=== PATIENT | female | born 1980 | race Caucasian/White ===

== ENCOUNTER 2017-11-30 23:00 | Emergency (ER) | payer BC, OTHER ==
[2017-11-30 23:08] VITALS: BP 132/83
[2017-11-30] MEDS ORDERED: Sodium Chloride 0.9% 10 ML Syringe FLUSH PRN (23:32)
[2017-11-30] MEDS ORDERED: Sodium Chloride 0.9% 1,000 ML IV ONE (23:33)
[2017-11-30] MEDS ORDERED: Butorphanol 2 MG/ML SDV IVPUSH ONE (23:34)
[2017-12-01 00:19] LABS: CHLORIDE,CL 105 mmol/L (101-111); SODIUM,NA 138 mmol/L (135-145)
--- NOTE | 2017-12-01 00:33 | EDM.PDOC ---
ED HPI GENERAL MEDICAL PROBLEM - General Chief Complaint: Headache Stated Complaint: HEADACHE AND HAND TREMOR [id number] Time Seen by Provider: 11/30/17 23:15 Source of Information: Reports: Patient, Family, RN, RN Notes Reviewed History Limitations: Reports: No Limitations - History of Present Illness INITIAL COMMENTS - FREE TEXT/NARRATIVE: Pt presents to the ER with c/o headache and hand tremors. Pt states that she began having a headache last night. 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 She states she developed tremors to the hands, which is still present in the right had upon arrival. Patient states she has been taking Tylenol and it has not been relieving the pain. Pt denies visual disturbance or nausea. Onset: Sudden Onset Date: 11/29/17 Headache Pain Score (Numeric/FACES): 7 - Related Data Allergies Allergy/AdvReac Type Severity Reaction Status Date / Time hydromorphone HCl Allergy Cannot Verified 11/30/17 23:15 [From Dilaudid] Remember Sulfa (Sulfonamide Allergy Chest Verified 11/30/17 23:15 Antibiotics) Presssure cinnamon Allergy Difficulty Uncoded 08/04/16 12:17 Breathing Home Meds: Home Meds Cholecalciferol (Vitamin D3) [Vitamin D] 5,000 unit PO DAILY 08/04/16 [History] Pantoprazole Sodium [Protonix] 40 mg PO DAILY 11/30/17 [History] Past Medical History Other Gastrointestinal History: 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 Other Musculoskeletal History: 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 - Past Surgical History HEENT Surgical History: Reports: Myringotomy w Tube(s), Tonsillectomy Dermatological Surgical History: Reports: Other (See Below) Social & Family History - Family History Family Medical History: Noncontributory - Tobacco Use Smoking Status *Q: Current Every Day Smoker Years of Tobacco use: 10 Packs/Tins Daily: 0.5 Used Tobacco, but Quit: No Second Hand Smoke Exposure: Yes - Caffeine Use Caffeine Use: Reports: Coffee - Alcohol Use Days Per Week of Alcohol Use: 0 - Recreational Drug Use Recreational Drug Use: No - Living Situation & Occupation Occupation: Employed ED ROS GENERAL - Review of Systems Review Of Systems: ROS reveals no pertinent complaints other than HPI. - Physical Exam Exam: See Below Exam Limited By: No Limitations General Appearance: Alert, WD/WN, Moderate Distress Eye Exam: Bilateral Eye: EOMI, Normal Inspection Ears: Normal External Exam, Hearing Grossly Normal Nose: Normal Inspection Throat/Mouth: Normal Inspection, Normal Voice, No Airway Compromise Head Exam: Atraumatic, Normocephalic Neck: Normal Inspection, Supple, Non-Tender, Full Range of Motion Respiratory/Chest: No Respiratory Distress, Lungs Clear, Normal Breath Sounds, No Accessory Muscle Use, Chest Non-Tender Cardiovascular: Normal Peripheral Pulses, Regular Rate, Rhythm, No Edema, No Gallop, No JVD, No Murmur, No Rub GI/Abdominal: Normal Bowel Sounds, Soft, Non-Tender, No Organomegaly, No Distention, No Abnormal Bruit, No Mass (Female) Exam: Deferred Rectal (Female) Exam: Deferred Neuro Exam (Abbreviated): Alert, Oriented, Normal Cognition, Other (noticeable tremor to the right hand) Back Exam: Normal Inspection, Full Range of Motion, NT Extremities: Limited Range of Motion (right) Psychiatric: Normal Affect, Normal Mood Skin Exam: Warm, Dry, Intact, Normal Color, No Rash Course - Vital Signs Last Recorded V/S: Last Vital Signs Temp 98.3 F 11/30/17 23:07 Pulse 77 11/30/17 23:07 Resp 18 11/30/17 23:07 BP 132/83 11/30/17 23:07 Pulse Ox 100 11/30/17 23:07 - Orders/Labs/Meds Orders: Active Orders 24 hr Category Date Time Status Peripheral IV Care [RC] . DIRECTED Care 11/30/17 23:33 Active DRUG SCREEN URINE BIORAD [URCHEM] Stat Lab 11/30/17 23:32 Ordered HCG QUALITATIVE,URINE [URCHEM] Stat Lab 11/30/17 23:32 Ordered UA W/MICROSCOPIC [URIN] Stat Lab 11/30/17 23:32 Ordered Peripheral IV Insertion Adult [OM.PC] Stat Oth 11/30/17 23:32 Ordered Labs: Laboratory Tests 11/30/17 11/30/17 Range/Units 23:55 23:55 WBC 18.0 H (5.0-10.0) 10^3/uL RBC 4.62 (4.2-5.4) 10^6/uL Hgb 13.1 (12.0-16.0) g/dL Hct 39.5 (37.0-47.0) % MCV 85.5 (80-100) fL MCH 28.4 (27.0-34.0) pg MCHC 33.2 (33.0-35.0) g/dL Plt Count 262 (150-450) 10^3/uL Neut % (Auto) 69.1 (42.2-75.2) % Lymph % (Auto) 19.3 L (20.5-50.1) % Victoria % (Auto) 6.6 (2-8) % Eos % (Auto) 4.7 H (1.0-3.0) % Baso % (Auto) 0.3 (0.0-1.0) % Sodium 138 (135-145) mmol/L Potassium 3.7 (3.6-5.0) mmol/L Chloride 105 (101-111) mmol/L Carbon Dioxide 26.0 (21.0-31.0) mmol/L Anion Gap 10.7 BUN 16 (7-18) mg/dL Creatinine 1.0 (0.6-1.3) mg/dL Est Cr Clr Drug Dosing 71.41 mL/min Estimated GFR (MDRD) > 60 BUN/Creatinine Ratio 16.00 Glucose 88 (74-105) mg/dL Calcium 9.2 (8.4-10.2) mg/dl Total Bilirubin 0.5 (0.2-1.0) mg/dL AST 18 (10-42) IU/L ALT 13 (10-60) IU/L Alkaline Phosphatase 45 (42-121) IU/L Total Protein 7.2 (6.7-8.2) g/dl Albumin 4.0 (3.2-5.5) g/dl Globulin 3.2 Albumin/Globulin Ratio 1.25 Meds: Medications Discontinued Medications Generic Name Dose Route Start Last Admin Trade Name Freq PRN Reason Stop Dose Admin Butorphanol Tartrate 2 mg 11/30/17 23:34 11/30/17 23:55 Stadol IVPUSH 11/30/17 23:35 2 mg ONETIME ONE Administration Sodium Chloride 1,000 mls @ 999 mls/hr 11/30/17 23:33 11/30/17 23:52 Normal Saline IV 12/01/17 00:33 999 mls/hr .BOLUS ONE Administration Ketorolac Tromethamine 30 mg 12/01/17 00:37 12/01/17 00:50 Toradol IVPUSH 12/01/17 00:38 30 mg ONETIME ONE Administration Ondansetron HCl 4 mg 12/01/17 00:37 12/01/17 00:48 Zofran IV 12/01/17 00:38 4 mg ONETIME ONE Administration Sodium Chloride 10 ml 11/30/17 23:32 Saline Flush FLUSH ASDIRECTED PRN Keep Vein Open - Radiology Interpretation Free Text/Narrative:: Head CT without: IMPRESSION: No evidence for acute transcortical infarct, acute intracranial hemorrhage, or mass effect. Thank you for allowing us to participate in the care of your patient. Dictated and Authenticated by: Nicholas Salas MD 12/01/2017 12:30 AM Central Time ([place] & [place]) See rad report - Re-Assessments/Exams Free Text/Narrative Re-Assessment/Exam: 12/01/17 04:07 Discussed with the patient her results of head CT. Discussed the possibility of this being an atypical migraine. Pt is encouraged to follow up with her primary care facility and suggested referral to Neurology. Pt states understanding. 12/01/17 04:08 Departure - Departure Time of Disposition: 00:59 Disposition: Home, Self-Care 01 Condition: Fair Clinical Impression: Migraine, Tremor of right hand - Discharge Information Instructions: Migraine Headache, [id number] Referrals: PCP,Unobtain [Ordering Only Provider] - Forms: ED Department Discharge Additional Instructions: Drink plenty of fluids Rest in a dark room Follow up with your primary care facility - My Orders Last 24 Hours: My Active Orders 11/30/17 23:32 DRUG SCREEN URINE BIORAD [URCHEM] Stat HCG QUALITATIVE,URINE [URCHEM] Stat UA W/MICROSCOPIC [URIN] Stat Peripheral IV Insertion Adult [OM.PC] Stat 11/30/17 23:33 Peripheral IV Care [RC] . DIRECTED - Assessment/Plan Last 24 Hours: My Active Orders 11/30/17 23:32 DRUG SCREEN URINE BIORAD [URCHEM] Stat HCG QUALITATIVE,URINE [URCHEM] Stat UA W/MICROSCOPIC [URIN] Stat Peripheral IV Insertion Adult [OM.PC] Stat 11/30/17 23:33 Peripheral IV Care [RC] . DIRECTED
[2017-12-01] MEDS ORDERED: Ondansetron 4 MG/2 ML SDV IV ONE (00:37)
[2017-12-01] MEDS ORDERED: Ketorolac 30 MG/ML SDV IVPUSH ONE (00:37)
== END 2017-12-01 01:17 | disposition home or self-care (01) ==
LOC: DL.ED 23:00
DX: G43.909 Migraine, unspecified, not intractable, without status migrainosus (principal); R25.1 Tremor, unspecified; F17.210 Nicotine dependence, cigarettes, uncomplicated; Z88.5 Allergy status to narcotic agent; Z88.2 Allergy status to sulfonamides; Z91.018 Allergy to other foods; Z79.899 Other long term (current) drug therapy
CPT/HCPCS: 36415; 70450; 80053; 85025; 96361; 96374; 96375; 99284; J0595; J1885; J2405; J7030

== ENCOUNTER 2018-10-12 14:50 | Emergency (ER) | payer OTHER ==
--- NOTE | 2018-10-12 15:14 | EDM.PDOC ---
ED HPI GENERAL MEDICAL PROBLEM - General Chief Complaint: Lower Extremity Injury/Pain Stated Complaint: HIP POPPED, SHOOTING PAINS DOWN LEG Time Seen by Provider: 10/12/18 15:05 Source of Information: Reports: Patient History Limitations: Reports: No Limitations - History of Present Illness INITIAL COMMENTS - FREE TEXT/NARRATIVE: This 37 yo female patient reports to the ED with right hip pain. The patient reports she was working at [employer] when the injury occurred. 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 The patient started to have pain throughout the hip and upper thigh after the incident. The patient reports the injury occurred at about 1000 this morning. The patient reports she took ibuprofen (400 mg) at about 1030 today with little to no relief. The patient reports increased pain with movement and with ambulating. 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 Right Hip Pain Score (Numeric/FACES): 8 - Related Data Allergies Allergy/AdvReac Type Severity Reaction Status Date / Time hydromorphone HCl Allergy Cannot Verified 10/12/18 15:12 [From Dilaudid] Remember Sulfa (Sulfonamide Allergy Chest Verified 10/12/18 15:12 Antibiotics) Presssure cinnamon Allergy Difficulty Uncoded 08/04/16 12:17 Breathing Home Meds: Home Meds Cholecalciferol (Vitamin D3) [Vitamin D] 5,000 unit PO DAILY 08/04/16 [History] Pantoprazole Sodium [Protonix] 40 mg PO DAILY 11/30/17 [History] busPIRone [Buspar] 10 mg PO DAILY 10/12/18 [History] Past Medical History Gastrointestinal History: Reports: Other (See Below) (celial disease) Other Gastrointestinal History: 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 Right foot nerve damage.) Social & Family History - Family History Family Medical History: Noncontributory - Caffeine Use Caffeine Use: Reports: Coffee - Living Situation & Occupation Occupation: Employed Review of Systems - Review of Systems Review Of Systems: ROS reveals no pertinent complaints other than HPI. ED EXAM, GENERAL - Physical Exam Exam: See Below Exam Limited By: No Limitations General Appearance: Alert, WD/WN, Moderate Distress Eye Exam: Bilateral Eye: EOMI, Normal Inspection, PERRL Ears: Normal External Exam, Normal Canal, Hearing Grossly Normal, Normal TMs Nose: Normal Inspection, Normal Mucosa, No Blood Throat/Mouth: Normal Inspection, Normal Lips, Normal Teeth, Normal Gums, Normal Oropharynx, Normal Voice, No Airway Compromise Head: Atraumatic, Normocephalic Neck: Normal Inspection, Supple, Non-Tender, Full Range of Motion Respiratory/Chest: No Respiratory Distress, Lungs Clear, Normal Breath Sounds, No Accessory Muscle Use, Chest Non-Tender Cardiovascular: Normal Peripheral Pulses, Regular Rate, Rhythm, No Edema, No Gallop, No JVD, No Murmur, No Rub GI/Abdominal: Normal Bowel Sounds, Soft, Non-Tender, No Organomegaly, No Distention, No Abnormal Bruit, No Mass (Female) Exam: Deferred Rectal (Female) Exam: Deferred Back Exam: Normal Inspection, Full Range of Motion, NT Extremities: Normal Inspection, Normal Range of Motion, Non-Tender, Normal Capillary Refill, No Pedal Edema Neurological: Alert, Oriented, CN II-XII Intact, Normal Cognition, Normal Gait, Normal Reflexes, No Motor/Sensory Deficits Psychiatric: Normal Affect, Normal Mood Skin Exam: Warm, Dry, Intact, Normal Color, No Rash Lymphatic: No Adenopathy Course - Vital Signs Last Recorded V/S: Last Vital Signs Temp 36.6 C 10/12/18 15:14 Pulse 81 10/12/18 15:14 Resp 14 10/12/18 15:14 BP 129/80 10/12/18 15:14 Pulse Ox 100 10/12/18 15:14 - Orders/Labs/Meds Orders: Active Orders 24 hr Category Date Time Status Hip Min 2V or 3V w Pelvis Rt [CR] Stat Exams 10/12/18 15:08 Ordered DME for Discharge [COMM] Urgent Oth 10/12/18 16:45 Ordered Meds: Medications Discontinued Medications Generic Name Dose Route Start Last Admin Trade Name Ya PRN Reason Stop Dose Admin Ketorolac Tromethamine 30 mg 10/12/18 16:43 Toradol IM 10/12/18 16:44 ONETIME ONE Departure - Departure Time of Disposition: 16:45 Disposition: Home, Self-Care 01 Condition: Fair Clinical Impression: Strain of right hip Qualifiers: Encounter type: initial encounter Qualified Code(s): S76.011A - Strain of muscle, fascia and tendon of right hip, initial encounter - Discharge Information *PRESCRIPTION DRUG MONITORING PROGRAM REVIEWED*: Not Applicable *COPY OF PRESCRIPTION DRUG MONITORING REPORT IN PATIENT KATHIE: Not Applicable Instructions: Muscle Strain, [id number] Forms: ED Department Discharge Care Plan Goals: The patient was advised of the examination and x-ray results during the visit. The patient was given an injection of Toradol (30 mg) while in the ED. The patient was discharged with a script for Toradol (10 mg) #20 to take 1 by mouth every 6 hours. The patient was encouraged to rest and ice the area of concern. The patient was discharged with a set of crutches to help reduce stress on her right hip. The patient should take Tylenol or ibuprofen as directed. If the patient has any additional symptoms or concerns, the patient should either return to the emergency department or visit her primary care facility. - My Orders Last 24 Hours: My Active Orders 10/12/18 15:08 Hip Min 2V or 3V w Pelvis Rt [CR] Stat 10/12/18 16:45 DME for Discharge [COMM] Urgent - Assessment/Plan Last 24 Hours: My Active Orders 10/12/18 15:08 Hip Min 2V or 3V w Pelvis Rt [CR] Stat 10/12/18 16:45 DME for Discharge [COMM] Urgent
[2018-10-12 15:20] VITALS: BP 129/80
[2018-10-12] MEDS ORDERED: Ketorolac 30 MG/ML SDV IM ONE (16:43)
--- NOTE | 2018-10-13 08:05 | CR ---
CLINICAL HISTORY: 37-year-old female complaining of right hip pain. INTERPRETATION: AP pelvis/hips and AP/frog lateral views right hip unremarkable, i.e., negative. Symmetric spacing normal-appearing SI and hip joints without arthritic degenerative change. No sign of pathologic skeletal lesion, pelvic or either hip fracture/dislocation. No foreign bodies.
== END 2018-10-12 16:55 | disposition home or self-care (01) ==
LOC: DL.ED 14:50
DX: S76.011A Strain of muscle, fascia and tendon of right hip, initial encounter (principal); Z88.2 Allergy status to sulfonamides; Z91.018 Allergy to other foods; Z88.6 Allergy status to analgesic agent; Z79.899 Other long term (current) drug therapy; Z98.890 Other specified postprocedural states; Z96.22 Myringotomy tube(s) status; X58.XXXA Exposure to other specified factors, initial encounter
CPT/HCPCS: 73502; 96372; 99283; J1885